=== PATIENT | male | born 1955 | race Two or more races ===

== ENCOUNTER 2022-01-11 05:35 | Day surgery (SDC) | payer OTHER ==
[~2022-01-11 05:35] MED LIST: ATACAND HCT 321 EAC1 PO; FENOFIBRATE150 MG PO; JARDIANCE10 MG PO; KOMBIGLYZE XR1 EACH PO
[2022-01-11] MEDS ORDERED: ULTRAM50 MG PO (10:25)
== END 2022-01-11 14:55 | disposition home or self-care (01) ==
LOC: CIR.AMB 05:35
PROVIDERS: ATTEND Surgery
DX: N47.1 Phimosis (principal); Z91.013 Allergy to seafood; I10 Essential (primary) hypertension; G47.33 Obstructive sleep apnea (adult) (pediatric); Z99.89 Dependence on other enabling machines and devices; Z87.891 Personal history of nicotine dependence; Z86.16 Personal history of COVID-19; E66.9 Obesity, unspecified